=== PATIENT | male | born 1950 | race Two or more races ===

== ENCOUNTER 2019-05-03 18:02 | Inpatient (IN) | payer OTHER ==
[~2019-05-03] VITALS: Ht 167.6 cm; Wt 86.7 kg
[2019-05-03] MEDS ORDERED: SODIUM CHLORIDE 0.9% 1000ML 1,000 ML IV STA (18:21)
[2019-05-03] MEDS ORDERED: ONDANSETRON HCL INJ 2MG/ML 2ML 2 MG/ML VIAL IV STA (18:21)
[2019-05-03] MEDS ORDERED: PANTOPRAZOLE 40 MG 10ML VIAL IV STA (18:21)
[2019-05-03 18:53] LABS: BASOPHILS % 0.4 % (0.0-1.0); EOSINOPHILS # (AUTO) 0.2 (0.0-0.4); EOSINOPHILS % 1.8 % (0.0-6.0); HEMATOCRIT 48.7 % (38.2-49.6); HEMOGLOBIN 16.8 g/dL (14.0-18.0); LYMPHOCYTES # (AUTO) 2.1 (1.0-3.2); LYMPHOCYTES % 20.2 % (18.0-39.1); MEAN CORPUSCULAR HEMOGLOBIN 29.7 pg (28-32); MEAN CORPUSCULAR HGB CONC 34.5 g/dL (31-35); MEAN CORPUSCULAR VOLUME 86.2 fL (81-99); MONOCYTES # (AUTO) 0.8 (0.2-0.8); MONOCYTES % 7.3 % (4.4-11.3); NEUTROPHILS # (AUTO) 7.4 (2.1-6.9); NEUTROPHILS % 69.6 % (38.7-80.0); PLATELET COUNT 249 x10e3/uL (140-360); RED BLOOD COUNT 5.65 x10e6/uL (4.3-5.7); RED CELL DISTRIBUTION WIDTH 13.3 % (11.7-14.4)
[2019-05-03 19:05] LABS: INR 0.88; PROTHROMBIN TIME 12.4 seconds (11.9-14.5)
[2019-05-03 19:15] LABS: ALANINE AMINOTRANSFERASE 41 IU/L (0-55); ALBUMIN 4.7 g/dL (3.5-5.0); ALBUMIN/GLOBULIN RATIO 1.4 (0.8-2.0); ALKALINE PHOSPHATASE 99 IU/L (40-150); AMYLASE 223 U/L (25-125); ANION GAP 17.3 mmol/L (8-16); BLOOD UREA NITROGEN 17 mg/dL (7-26); BUN/CREATININE RATIO 15 (6-25); CALCIUM 11.3 mg/dL (8.4-10.2); CARBON DIOXIDE 31 mmol/L (22-29); CHLORIDE 97 mmol/L (98-107); CREATINE KINASE 157 IU/L (30-200); CREATININE, SERUM 1.17 mg/dL (0.72-1.25); EST GLOMERULAR FILTRATION RATE > 60 ML/MIN (60-); GLUCOSE 204 mg/dL (74-118); LIPASE 41 U/L (8-78); MAGNESIUM 2.6 MG/DL (1.3-2.1); POTASSIUM 4.3 mmol/L (3.5-5.1); SODIUM 141 mmol/L (136-145)
--- NOTE | 2019-05-03 19:17 | Diagnostic Imaging Report ---
A single frontal view of the chest. HISTORY: Abdominal pain, nausea, vomiting COMPARISON: None available. DISCUSSION: Portable technique, limits sensitivity of the exam. Soft tissue attenuation partially limits sensitivity of the exam. Tubes/Lines: None Lungs and pleura: Elevation versus eventration of the right hemidiaphragm. Minimal right basilar atelectasis. No evidence of a consolidative pneumonia or pulmonary alveolar edema. No definite pleural effusion or pneumothorax is identified. Heart and mediastinum: The cardiomediastinal silhouette appear(s) unremarkable. Bones and soft tissues: Appear unremarkable, given this limited exam. IMPRESSION: 1. Mild elevation versus eventration of the right hemidiaphragm with adjacent minimal atelectasis. 2. Otherwise, no acute radiographic abnormality. Signed by: Dr. Aquiles Lozoya D.O., M.M.M. on 05/03/2019 7:14 PM
[2019-05-03] MEDS ORDERED: IOPAMIDOL 370 MG/ML 200 ML INFUS..BTL INJ ONE (19:30)
[2019-05-03] MEDS ORDERED: SODIUM CHLORIDE 0.9% 50ML 50 ML ONE (19:30)
[2019-05-03 20:23] LABS: BILIRUBIN,URINE NEGATIVE (NEGATIVE); CLARITY,URINE CLEAR (CLEAR); COLOR,URINE YELLOW (YELLOW); KETONES,URINE NEGATIVE (NEGATIVE); LEUKOCYTE ESTERASE ,URINE NEGATIVE (NEGATIVE); NITRITE,URINE NEGATIVE (NEGATIVE); PROTEIN,URINE DIPSTICK 1+ (NEGATIVE); URINE UROBILINOGEN 0.2 mg/dL (0.2 - 1)
[2019-05-03 20:37] LABS: BACTERIA,URINE FEW /HPF
[2019-05-03 20:38] LABS: EPITHELIAL CELLS,URINE RARE /LPF; MUCUS,URINE MANY (RARE)
--- NOTE | 2019-05-03 20:47 | Diagnostic Imaging Report ---
EXAM: CT of the abdomen and pelvis WITH contrast HISTORY: Abdominal pain, nausea, vomiting, diarrhea, status post appendectomy COMPARISON: None available. TECHNIQUE: The abdomen and pelvis were scanned utilizing a multidetector helical scanner. Coronal and sagittal reformats are provided. PROTOCOL: Routine IV CONTRAST: 100 cc of Isovue-370. ORAL CONTRAST: None, which limits sensitivity and specificity of the exam. RADIATION DOSE: Total DLP: 664.82 mGy*cm Estimated effective dose: (DLP x 0.015 x size factor) Dose modulation, iterative reconstruction, and/or weight based adjustment of the mA/kV was utilized to reduce the radiation dose to as low as reasonably achievable. COMPLICATIONS: None FINDINGS: LOWER THORAX: Minimal right lower lobe dependent atelectasis. HEPATOBILIARY: Diffusely decreased attenuation. A 1.5 cm fluid density within the left lobe, compatible with a small cyst. No biliary dilation. No calcified gallstone. SPLEEN: No splenomegaly. PANCREAS: No focal masses or ductal dilatation. ADRENALS: A 4 mm macroscopic fat density within the left adrenal gland, compatible with an adrenal myelolipoma. KIDNEYS/URETERS: No hydronephrosis, stones, or definite solid mass lesions. PELVIC ORGANS/BLADDER: Enlarged prostate, 6.1 cm (ML). GI TRACT: Multiple distended to mildly dilated loops of predominantly fluid-filled small bowel within the left upper quadrant and mid abdomen, measuring up to 3.5 cm in diameter. More distally small bowel feces sign with a transition zone within the anterior aspect of the right lower quadrant of the abdomen with more distal decompressed small bowel. Air and fecal material throughout the colon. PERITONEUM / RETROPERITONEUM: No free air or fluid. LYMPH NODES: No pathologically enlarged lymph node. VESSELS: Scattered atherosclerotic vascular calcifications, including the coronary arteries. BONES and JOINTS: No aggressive osseous lesion or acute fracture. Multilevel degenerative changes of the axial skeleton, a degenerative 9 mm anterolisthesis of L4 on L5. SOFT TISSUES: Ventral superficial soft tissue edema. IMPRESSION: 1. Findings most compatible with a partial small bowel obstruction (mid to distal small bowel) at the anterior aspect of the right lower quadrant of the abdomen. 2. Incidental 4 mm left adrenal myelolipoma. 3. Coronary atherosclerosis. Signed by: Dr. Aquiles Lozoya D.O., M.M.M. on 05/03/2019 8:43 PM
[2019-05-03] MEDS ORDERED: BENZOCAINE/TETRACAINE/BUTAMBEN AERO SPRAY 56 GM CAN TOP ONE (21:00)
[2019-05-03] MEDS ORDERED: LIDOCAINE VISC 2% SOLN 15 ML UDC ONE (21:29)
[2019-05-03] MEDS ORDERED: ONDANSETRON HCL INJ 2MG/ML 2ML 2 MG/ML VIAL IV PRN (21:30)
[2019-05-03] MEDS ORDERED: DEXTROSE 50% SYRINGE 50 ML IV PRN (21:30)
--- OUTSIDE RECORDS SUMMARY | 2019-05-03 21:30 | XMS REPORT ---
Author Author [facility] Address Unknown Phone Unavailable Care Team Providers Care Lead Trainer Name Role Phone Mp PAGAN Unavailable Unavailable Problems This patient has no known problems. Allergies, Adverse Reactions, Alerts This patient has no known allergies or adverse reactions. Medications This patient has no known medications. Results Test Description Test Time Test Comments Text Results Atomic Results Result Comments CT ABDOMEN/PELVIS W 2019-05-03 20:22:00 [place] [address] Patient Name: NIKI RAMIREZ JR MR #: [id number] : 1950 Age/Sex: 68/M Req #: [id number] Adm Physician: Ordered by: FRANCISCO JAVIER PAGAN MD Report #: [id number] Location: ER Room/Bed: Procedure: CT/CT ABDOMEN/PELVIS W Exam Date: 05/03/19 Exam Time: 1947 REPORT STATUS: Signed EXAM: CT of the abdomen and pelvis WITH contrast HISTORY: Abdominal pain, nausea, vomiting, diarrhea, status post appendectomy COMPARISON: None available. TECHNIQUE: The abdomen and pelvis were scanned utilizing a multidetector helical scanner. Coronal and sagittal reformats are provided. PROTOCOL: Routine IV CONTRAST: 100 cc of Isovue-370. ORAL CONTRAST: None, which limits sensitivity and specificity of the exam. RADIATION DOSE: Total DLP: 664.82 mGy*cm Estimated effective dose: (DLP x 0.015 x size factor) Dose modulation, iterative reconstruction, and/or weight based adjustment of the mA/kV was utilized to reduce the radiation dose to as low as reasonably achievable. COMPLICATIONS: None FINDINGS: LOWER THORAX: Minimal right lower lobe dependent atelectasis. HEPATOBILIARY: Diffusely decreased attenuation. A 1.5 cm fluid density within the left lobe, compatible with a small cyst. No biliary dilation. No calcified gallstone. SPLEEN: No splenomegaly. PANCREAS: No focal masses or ductal dilatation. ADRENALS: A 4 mm macroscopic fat density within the left adrenal gland, compatible with an adrenal myelolipoma. KIDNEYS/URETERS: No hydronephrosis, stones, or definite solid mass lesions. PELVIC ORGANS/BLADDER: Enlarged prostate, 6.1 cm (ML). GI TRACT: Multiple distended to mildly dilated loops of predominantly fluid-filled small bowel within the left upper quadrant and mid abdomen, measuring up to 3.5 cm in diameter. More distally small bowel feces sign with a transition zone within the anterior aspect of the right lower quadrant of the abdomen with more distal decompressed small bowel. Air and fecal material throughout the colon. PERITONEUM / RETROPERITONEUM: No free air or fluid. LYMPH NODES: No pathologically enlarged lymph node. VESSELS: Scattered atherosclerotic vascular calcifications, including the coronary arteries. BONES and JOINTS: No aggressive osseous lesion or acute fracture. Multilevel degenerative changes of the axial skeleton, a degenerative 9 mm anterolisthesis of L4 on L5. SOFT TISSUES: Ventral superficial soft tissue edema. IMPRESSION: 1. Findings most compatible with a partial small bowel obstruction (mid to distal small bowel) at the anterior aspect of the right lower quadrant of the abdomen. 2. Incidental 4 mm left adrenal myelolipoma. 3. Coronary atherosclerosis. Signed by: Ann Marie SteeleO., M.M.M. on 05/03/2019 8:43 PM Dictated By: RHONA LOZOYA DO 42 Transcribed By: HARLEY on 05/03/192042 COPY TO: FRANCISCO JAVIER PAGAN MD CHEST SINGLE (PORTABLE) 2019-05-03 19:12:00 [place] [address] Patient Name: NIKI RAMIREZ JR MR #: [id number] : 1950 Age/Sex: 68/M Req #: [id number] [facility] Physician: Ordered by: FRANCISCO JAVIER PAGAN MD Report #: [id number] Location: ER Room/Bed: Procedure: [id number] DX/CHEST SINGLE (PORTABLE) Exam Date: 05/03/19 Exam Time: 1836 REPORT STATUS: Signed A single frontal view of the chest. HISTORY: Abdominal pain, nausea, vomiting COMPARISON: None available. DISCUSSION: Portable technique, limits sensitivity of the exam. Soft tissue attenuation partially limits sensitivity of the exam. Tubes/Lines: None Lungs and pleura: Elevation versus eventration of the right hemidiaphragm. Minimal right basilar atelectasis. No evidence of a consolidative pneumonia or pulmonary alveolar edema. No definite pleural effusion or pneumothorax is identified. Heart and mediastinum: The cardiomediastinal silhouette appear(s) unremarkable. Bones and soft tissues: Appear unremarkable, given this limited exam. IMPRESSION: 1. Mild elevation versus eventration of the right hemidiaphragm with adjacent minimal atelectasis. 2. Otherwise, no acute radiographic abnormality. Signed by: Dr. Rhona Lozoya D.O., M.M.M. on 05/03/2019 7:14 PM Dictated By: RHONA LOZOYA DO 13 Transcribed By: HARLEY on 05/03/191913 COPY TO: FRANCISCO JAIVER PAGAN MD
--- NOTE | 2019-05-03 22:45 | NUR ---
RECEIVED REPORT FROM HARRY MARTINEZ IN THE ER FOR PT TRANSFERRING TO ROOM 198.
--- NOTE | 2019-05-03 22:55 | NUR ---
RECEIVED PT BY STRETCHER TO ROOM 198, PT AAOX3, RR EVEN AND NON-LABORED, NGT CONNECTED TO LCS. NO S/SX OF DISTRESS NOTED. PT REPORTS PAIN TO ANTERIOR ABD. ABD NOTED TO BE DISTENDED. PT ASSISTED TO AMBULATE TO HOSPITAL BED, AND LAY IN FOWLERS POSITION. ORIENTED PT AND FAMILY TO HOSPITAL ROOM, CALL LIGHT, PHONE, BED CONTROL AND LIGHTS. LEFT PT LAYING FOWLERS IN BED, BED IN LOW LOCKED POSITION, SIDE RAILS UPX2, CALL LIGHT AND PHONE WITHIN REACH.
[2019-05-03 23:00] VITALS: BP 158/84
[2019-05-03] MEDS: SODIUM CHLORIDE 0.9% 250ML IRRIG IR SCH (23:05)
[2019-05-03] MEDS ORDERED: BENZOCAINE/TETRACAINE/BUTAMBEN AERO SPRAY 56 GM CAN ONE (23:10)
[2019-05-03] MEDS: SODIUM CHLORIDE 0.9% 1000ML 1,000 ML IV SCH (23:20)
[2019-05-03 23:30] VITALS: BP 158/84
[2019-05-03] MEDS: MORPHINE SULFATE INJ 4 MG/ML INJ 1ML IV PRN (23:46)
[2019-05-03] MEDS: INSULIN LISPRO 100 UNIT/1 ML 3ML VIAL SQ SCH (23:52)
[2019-05-04] VITALS (8 sets, daily range): BP systolic 133–158; BP diastolic 76–84
[2019-05-04] MEDS ORDERED: ASPIR 8181 MG PO
[2019-05-04] MEDS ORDERED: METFORMIN HCL500 MG PO
[2019-05-04] MEDS ORDERED: NOVOLOG100 UNITS1 SC
[2019-05-04] MEDS ORDERED: LANTUS 3ML100 UNITS/ SC
[2019-05-04] MEDS ORDERED: SERTRALINE HCL100 MG PO
[2019-05-04] MEDS ORDERED: LISINOPRIL10 MG PO
[2019-05-04] MEDS ORDERED: LIPITOR20 MG PO
[2019-05-04 00:42] LABS: CREATINE KINASE 95 IU/L (30-200)
[2019-05-04] MEDS: SODIUM CHLORIDE 0.9% 250ML IRRIG IR SCH ×6 (02:17→21:57)
[2019-05-04] MEDS: SODIUM CHLORIDE 0.9% 1000ML 1,000 ML IV SCH ×3 (05:19→16:02)
[2019-05-04 05:31] LABS: BASOPHILS % 0.3 % (0.0-1.0); EOSINOPHILS # (AUTO) 0.1 (0.0-0.4); EOSINOPHILS % 1.5 % (0.0-6.0); HEMATOCRIT 41.6 % (38.2-49.6); HEMOGLOBIN 13.9 g/dL (14.0-18.0); LYMPHOCYTES # (AUTO) 1.4 (1.0-3.2); LYMPHOCYTES % 22.9 % (18.0-39.1); MEAN CORPUSCULAR HEMOGLOBIN 29.4 pg (28-32); MEAN CORPUSCULAR HGB CONC 33.4 g/dL (31-35); MEAN CORPUSCULAR VOLUME 87.9 fL (81-99); MONOCYTES # (AUTO) 0.7 (0.2-0.8); MONOCYTES % 10.9 % (4.4-11.3); NEUTROPHILS % 64.1 % (38.7-80.0); PLATELET COUNT 208 x10e3/uL (140-360); RED BLOOD COUNT 4.73 x10e6/uL (4.3-5.7); RED CELL DISTRIBUTION WIDTH 13.2 % (11.7-14.4)
[2019-05-04 05:57] LABS: ALANINE AMINOTRANSFERASE 31 IU/L (0-55); ALBUMIN 3.5 g/dL (3.5-5.0); ALBUMIN/GLOBULIN RATIO 1.3 (0.8-2.0); ALKALINE PHOSPHATASE 64 IU/L (40-150); AMYLASE 90 U/L (25-125); ANION GAP 11.3 mmol/L (8-16); BLOOD UREA NITROGEN 16 mg/dL (7-26); BUN/CREATININE RATIO 19 (6-25); CALCIUM 9.2 mg/dL (8.4-10.2); CARBON DIOXIDE 27 mmol/L (22-29); CHLORIDE 99 mmol/L (98-107); CREATINE KINASE 92 IU/L (30-200); CREATININE, SERUM 0.86 mg/dL (0.72-1.25); EST GLOMERULAR FILTRATION RATE > 60 ML/MIN (60-); GLUCOSE 183 mg/dL (74-118); LIPASE 65 U/L (8-78); POTASSIUM 4.3 mmol/L (3.5-5.1); SODIUM 133 mmol/L (136-145)
[2019-05-04] MEDS: INSULIN LISPRO 100 UNIT/1 ML 3ML VIAL SQ SCH ×4 (06:00→23:56)
[2019-05-04] MEDS ORDERED: ACETAMINOPHEN 1000 MG/100 ML IV PRN (09:30)
[2019-05-04] MEDS ORDERED: ONDANSETRON HCL INJ 2MG/ML 2ML 2 MG/ML VIAL IV PRN (09:30)
--- NOTE | 2019-05-04 09:35 | NUR ---
pt resting in bed, family at bedside. vs stable. no s/s distress or c/o pain. vs stable. ng tube patent and to low suction
--- NOTE | 2019-05-04 11:37 | Consultation ---
DATE OF CONSULTATION: 05/04/2019 CHIEF COMPLAINT: Abdominal pain, vomiting. HISTORY OF PRESENT ILLNESS: This patient is a 68-year-old male with 1-day history of pain in the periumbilical area, cramping in nature with repeated vomiting. He denied fever, chills, or diarrhea. He has passed no flatus. PAST MEDICAL HISTORY: Positive for diabetes, hyperlipidemia. PAST SURGICAL HISTORY: Positive for abdominal incisional hernia repair. ALLERGIES: HE HAS NO DRUG ALLERGIES. SOCIAL HABITS: He denies smoking or alcohol abuse. REVIEW OF SYSTEMS: No chest pain, shortness of breath, or cough. PHYSICAL EXAMINATION: VITAL SIGNS: The patient's vital signs stable, afebrile. GENERAL: He is awake, alert, in moderate discomfort. HEENT: Sclerae nonicteric. NECK: Supple. LUNGS: Clear. HEART: Regular rate and rhythm. ABDOMEN: Moderately distended with no focal tenderness. EXTREMITIES: Without cyanosis or edema. LABORATORY DATA: White cell count is 6.1, hemoglobin of 14, and creatinine of 0.8, and glucose 183. CT of the abdomen show dilated loops of small bowel consistent with partial bowel obstruction. ASSESSMENT: Intestinal obstruction secondary to adhesions. Planned nasogastric tube decompression. Serial abdominal x-ray. We will follow the patient with you. Wesly Dumont MD DNL/MODL /[id number]
--- NOTE | 2019-05-04 13:04 | NUR ---
received pt via wheelchair from [facility] accompanied by . patient safely transferred into bed. oriented to room and use of call light. call light placed within reach. NGT to right nare and connected to LWS. clear red drainage noted. pain 5/10 to abdomen. AAOX4. bed in low and locked position. patient instructed to call for assistance using call light.
[2019-05-04] MEDS: MORPHINE SULFATE INJ 4 MG/ML INJ 1ML IV PRN (13:11)
--- NOTE | 2019-05-04 13:40 | NUR ---
clarified KUB order with and wants KUB in am 05/05/19.
[2019-05-04] MEDS ORDERED: MORPHINE SULFATE 2 MG/ML SYR 1ML IV PRN (13:45)
--- NOTE | 2019-05-04 13:57 | NUR ---
EDUCATED ABOUT IMM, SIGNED, FILED IN CHART, WITH COPY LEFT WITH FAMILY AT BEDSIDE.
[2019-05-04 14:18] LABS: CREATINE KINASE 90 IU/L (30-200)
--- NOTE | 2019-05-04 15:28 | History and Physical ---
PRIMARY CARE PHYSICIAN: Dr. Wesly Golden. CAST IRON DIPPER: Dr. Wesly Dumont. CHIEF COMPLAINT: Abdominal distention, abdominal pain, small-bowel obstruction. HISTORY OF PRESENT ILLNESS: The patient is a 68-year-old male came in with abdominal distention started approximately within 24 hours. The patient had a CT scan done in the emergency room, found to have partial small bowel obstruction. NG tube in place with output. The patient had multiple abdominal surgery in the remote past. He had appendectomy and he had a ventral hernia repair. The patient is otherwise stable at this time on NG tube. Pain is improving. PAST MEDICAL HISTORY: Diabetes type 2, on insulin therapy, dyslipidemia, hypertension, anxiety. PAST SURGICAL HISTORY: Appendectomy, knee surgery, ventral abdominal hernia repair. SOCIAL HISTORY: The patient lives with his spouse. He does not smoke or use alcohol. No regular drugs. ALLERGIES: NO KNOWN ALLERGIES. HOME MEDICATIONS: Aspirin, Lipitor, insulin aspart, insulin Lantus, lisinopril, metformin, and Zoloft. PHYSICAL EXAMINATION: VITAL SIGNS: Temperature 97, blood pressure 139/80, pulse rate 92, respirations 18. GENERAL: The patient is not in acute distress. He is awake. HEENT: Normocephalic, atraumatic. Pupils reactive. NG tube in place. PULMONARY: Diminished breath sounds without any wheezing. CARDIOVASCULAR: S1, S2. Regular rate and rhythm. ABDOMEN: Diminished bowel sounds, distention, midline scar. NG tube in place. EXTREMITIES: No cyanosis or edema NEUROLOGIC: No focal deficit. LABORATORY DATA: WBC 6.2, hemoglobin 13.9, hematocrit 42, platelets 208. Sodium 141, potassium 4.3, chloride 97, bicarb 31, BUN 17, creatinine 1.1, glucose is 204, magnesium 206. Liver enzymes normal. Cardiac enzymes normal. IMAGING: Partial small-bowel obstruction. IMPRESSION: 1. Partial small-bowel obstruction associated with abdominal pain, nausea, and abdominal distention. 2. Multiple chronic baseline problems. PLAN: Dr. Wesly Dumont has seen the patient. Repeat KUB in the morning. Home medication with some adjustment. Insulin sliding scale. IV fluids. Increase activity as tolerated. MD YVONNE Pennington/MODL /[id number]
--- NOTE | 2019-05-04 19:20 | NUR ---
Patient received lying in bed. at bedside. AAO x 3. Patient had no complaints of pain. Respirations even and non-labored. NG tube in right nares connected to low continuous suction. Patient instructed to call for assistance when needed. Call light within reach.
[2019-05-05] VITALS (8 sets, daily range): BP systolic 121–139; BP diastolic 64–78
[2019-05-05] MEDS: SODIUM CHLORIDE 0.9% 250ML IRRIG IR SCH ×4 (01:00→12:15)
[2019-05-05] MEDS: SODIUM CHLORIDE 0.9% 1000ML 1,000 ML IV SCH ×2 (04:52→18:00)
[2019-05-05 05:03] LABS: BASOPHILS % 0.3 % (0.0-1.0); EOSINOPHILS # (AUTO) 0.1 (0.0-0.4); HEMATOCRIT 40.7 % (38.2-49.6); HEMOGLOBIN 13.7 g/dL (14.0-18.0); LYMPHOCYTES # (AUTO) 1.3 (1.0-3.2); LYMPHOCYTES % 19.1 % (18.0-39.1); MEAN CORPUSCULAR HEMOGLOBIN 29.5 pg (28-32); MEAN CORPUSCULAR HGB CONC 33.7 g/dL (31-35); MEAN CORPUSCULAR VOLUME 87.7 fL (81-99); MONOCYTES # (AUTO) 0.6 (0.2-0.8); MONOCYTES % 8.8 % (4.4-11.3); NEUTROPHILS # (AUTO) 4.6 (2.1-6.9); NEUTROPHILS % 69.6 % (38.7-80.0); PLATELET COUNT 165 x10e3/uL (140-360); RED BLOOD COUNT 4.64 x10e6/uL (4.3-5.7); RED CELL DISTRIBUTION WIDTH 13.1 % (11.7-14.4)
[2019-05-05 05:15] LABS: ANION GAP 9.1 mmol/L (8-16); BLOOD UREA NITROGEN 13 mg/dL (7-26); BUN/CREATININE RATIO 18 (6-25); CALCIUM 8.6 mg/dL (8.4-10.2); CARBON DIOXIDE 29 mmol/L (22-29); CHLORIDE 99 mmol/L (98-107); CREATININE, SERUM 0.73 mg/dL (0.72-1.25); EST GLOMERULAR FILTRATION RATE > 60 ML/MIN (60-); GLUCOSE 170 mg/dL (74-118); POTASSIUM 4.1 mmol/L (3.5-5.1); SODIUM 133 mmol/L (136-145)
[2019-05-05 05:59] LABS: MAGNESIUM 1.8 MG/DL (1.3-2.1)
[2019-05-05] MEDS: INSULIN LISPRO 100 UNIT/1 ML 3ML VIAL SQ SCH ×3 (06:00→18:00)
[2019-05-05 06:03] LABS: FOLATE 12.6 ng/mL (7.0-15.4)
--- NOTE | 2019-05-05 06:58 | Diagnostic Imaging Report ---
EXAM: Abdomen 1 View INDICATION: Small bowel obstruction COMPARISON: Abdominal CT 05/03/2019 FINDINGS: Enteric tube tip terminates in the upper mid abdomen. Slightly dilated gas-filled loops of small bowel in the left abdomen. No renal calculi. No abnormal soft tissue masses. There are degenerative changes in the lumbar spine and pelvis. IMPRESSION: Enteric tube tip projects in the expected location of the gastric lumen. Mildly dilated loops of small bowel in left abdomen consistent with low-grade partial small bowel obstruction. Signed by: Sina Thibodeaux DO on 05/05/2019 6:55 AM
--- NOTE | 2019-05-05 07:13 | NUR ---
Walking rounds done. Shift report given to oncoming nurse.
[2019-05-05] MEDS: PANTOPRAZOLE 40 MG 10ML VIAL IV SCH (09:11)
[2019-05-05] MEDS ORDERED: ENOXAPARIN SOD INJ 40 MG/0.4 ML SYR SC SCH (17:00)
[2019-05-06] VITALS: BP 108/55
[2019-05-06 04:00] VITALS: BP 108/54
[2019-05-06 05:32] LABS: ANION GAP 9.8 mmol/L (8-16); BLOOD UREA NITROGEN 8 mg/dL (7-26); BUN/CREATININE RATIO 11 (6-25); CALCIUM 8.2 mg/dL (8.4-10.2); CARBON DIOXIDE 28 mmol/L (22-29); CHLORIDE 104 mmol/L (98-107); CREATININE, SERUM 0.74 mg/dL (0.72-1.25); EST GLOMERULAR FILTRATION RATE > 60 ML/MIN (60-); GLUCOSE 148 mg/dL (74-118); POTASSIUM 3.8 mmol/L (3.5-5.1); SODIUM 138 mmol/L (136-145)
--- NOTE | 2019-05-06 05:48 | Diagnostic Imaging Report ---
EXAM: Abdomen 2 View INDICATION: Small bowel obstruction COMPARISON: Abdominal CT 05/03/2019; abdominal radiograph 05/05/2019 5:47 AM FINDINGS: Interval removal of enteric tube compared to 05/05/2019. No gas-filled loops of pathologically dilated bowel. No renal calculi. No abnormal soft tissue masses. There are degenerative changes in the lumbar spine and pelvis. The included lower chest is unremarkable. IMPRESSION: No gas-filled loops of pathologically dilated bowel to indicate a bowel obstruction. Signed by: Sina Thibodeaux DO on 05/06/2019 5:44 AM
--- NOTE | 2019-05-06 07:00 | NUR ---
BEDSIDE SHIFT REPORT RECEIVED FROM THE DRILLER HAND RN. PT FAMILY AT BEDSIDE. PT DENIES NEEDS AT THIS TIME.
[2019-05-06] MEDS: INSULIN LISPRO 100 UNIT/1 ML 3ML VIAL SQ SCH ×2 (07:13)
[2019-05-06 08:08] VITALS: BP 117/63
[2019-05-06] MEDS: PANTOPRAZOLE 40 MG 10ML VIAL IV SCH (08:42)
[2019-05-06 08:45] VITALS: BP 117/63
[2019-05-06] MEDS ORDERED: ONDANSETRON HCL 4 MG ORAL DISINTEGRATING TAB PO PRN (09:45)
--- NOTE | 2019-05-06 10:08 | NUR ---
JOEL TO D/C PT PER DR. DELEON
[2019-05-06] MEDS ORDERED: SENNA LAX8.6 MG (10:13)
--- NOTE | 2019-05-06 10:22 | NUR ---
PT DISCHARGED HOME SAFELY WITH FAMILY. IV REMOVED. TIP INTACT. NO BLEEDING NOTED. DRESSING APPLIED. PT DENIED FURTHER NEEDS.
--- NOTE | 2019-05-06 11:18 | NUR ---
EDUCATED ABOUT IMM SIGNED FILED IN CHART AND LEFT COPY WITH PT BEDSIDE WITH CARD FOR ANY FURTHER QUESTIONS
== END 2019-05-06 10:23 | disposition home or self-care (01) | DRG 390 ==
LOC: ER 18:02 → ERHOLD 21:27 → IMCU 23:05 → MED/SURG2 05-04 13:05
PROVIDERS: ADMIT Internal Medicine; ATTEND Internal Medicine
DX: K56.609 Unspecified intestinal obstruction, unspecified as to partial versus complete obstruction (principal); E11.9 Type 2 diabetes mellitus without complications; I10 Essential (primary) hypertension
CPT/HCPCS: 36415; 71045; 74018; 74177; 80048; 80053; 81001; 82150; 82550; 82553; 82607; 82746; 82948; 83036; 83690; 83735; 84100; 84484; 85025; 85610; 85730; 86850; 86900; 93005; 99284; J1650; J2270; J2405; J7030; Q9967

== ENCOUNTER → 2019-07-29 | Day surgery (SDC) | payer MEDICARE ==
[2019-07-27 10:09] LABS: BASOPHILS % 0.3 % (0.0-1.0); EOSINOPHILS # (AUTO) 0.2 (0.0-0.4); EOSINOPHILS % 2.5 % (0.0-6.0); HEMATOCRIT 44.1 % (38.2-49.6); HEMOGLOBIN 15.2 g/dL (14.0-18.0); LYMPHOCYTES # (AUTO) 2.1 (1.0-3.2); LYMPHOCYTES % 32.3 % (18.0-39.1); MEAN CORPUSCULAR HEMOGLOBIN 29.5 pg (28-32); MEAN CORPUSCULAR HGB CONC 34.5 g/dL (31-35); MEAN CORPUSCULAR VOLUME 85.5 fL (81-99); MONOCYTES # (AUTO) 0.6 (0.2-0.8); MONOCYTES % 9.5 % (4.4-11.3); NEUTROPHILS # (AUTO) 3.6 (2.1-6.9); NEUTROPHILS % 55.1 % (38.7-80.0); PLATELET COUNT 219 x10e3/uL (140-360); RED BLOOD COUNT 5.16 x10e6/uL (4.3-5.7); RED CELL DISTRIBUTION WIDTH 13.3 % (11.7-14.4)
--- NOTE | 2019-07-27 10:50 | Diagnostic Imaging Report ---
Chest, 1 view, 07/27/2019. History: Preop, shoulder surgery. Comparison: 05/03/2019. Findings: The cardiomediastinal silhouette and pulmonary vasculature are within normal limits for a portable exam. There is persistent mild elevation of the right hemidiaphragm. There is no focal consolidation or pleural effusion. There are no acute osseous or soft tissue abnormalities. Impression: No acute cardiopulmonary abnormality. Signed by: Tera Gomez on 07/27/2019 10:47 AM
[~2019-07-29] MED LIST: ACETAMINOPHEN 1000 MG/100 ML IV ONE; ASPIR 8181 MG PO; BUPIVACAINE HCL 0.5% INJ 30 ML VIAL INJ ONE; CEFAZOLIN SOD 1 GM/NS 50ML 100 ML IV ONE; DEXAMETHASONE SOD PHOS INJ 4 MG/ML VIAL ONE; EPINEPHRINE 1 MG/ML 30ML VIAL ONE; EPINEPHRINE HCL 1:1000 1ML 1 MG/ML AMP ONE; FENTANYL CITRATE/PF 100MCG/2 ML INJ ONE; HYDROXYZINE HCL25 MG PO; INSULIN LISPRO 100 UNIT/1 ML 3ML VIAL SQ ONE; INSULIN REGULAR, HUMAN 100 UNIT/1 ML 3ML VIAL ONE; LANTUS 3ML100 UNITS/ SC; LEVEMIR100 UNIT/1 INJ; LIDOCAINE HCL 2% LOCAL INJ 5 ML SDV VIAL INJ ONE; LIPITOR20 MG PO; LISINOPRIL10 MG PO; LORATADINE10 MG PO; METFORMIN HCL500 MG PO; MIDAZOLAM HCL 2 MG/2 ML VIAL ONE; MORPHINE SULFATE INJ 4 MG/ML INJ 1ML ONE; NOVOLOG100 UNITS1 SC; ONDANSETRON HCL INJ 2MG/ML 2ML 2 MG/ML VIAL ONE; PROPOFOL IV EMULSION 10 MG/ML 20 ML VIAL ONE; ROCURONIUM BROMIDE 10 MG/ML 5ML VIAL ONE; SENNA LAX8.6 MG; SERTRALINE HCL100 MG PO; SEVOFLURANE INHAL SOLN 250 ML PEN BTL ONE; SULINDAC200 MG PO; VICTOZA 2-0.6 MG/0.1 INJ; VITAMIN B-121000 MCG PO
[2019-07-29 12:15] VITALS: BP 154/86
--- NOTE | 2019-07-31 20:30 | Operative Report ---
DATE OF PROCEDURE: 07/29/2019 SURGEON: Georges Holloway MD PREOPERATIVE DIAGNOSES: Left shoulder rotator cuff tear, left shoulder acromioclavicular joint arthrosis. 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 OPERATIONS AND PROCEDURES PERFORMED: The patient underwent a left shoulder exam under anesthesia, left shoulder manipulation under anesthesia, left shoulder debridement of synovitis, left shoulder chondroplasty of the humeral head and glenoid, left shoulder arthroscopic repair of a massive rotator cuff tear, left shoulder arthroscopic subacromial decompression and acromioplasty and left shoulder arthroscopic distal clavicle resection. MISSION MANAGER: RAYO Brown. ANESTHESIA: General endotracheal intubation anesthesia as well as a regional block. IV FLUIDS: As per the anesthesia record. BRIEF DESCRIPTION OF THE PATIENT'S OPERATIVE PROCEDURE: Mr. Echols was taken to the operating room and placed in supine position on the operating room table. Following induction of general anesthesia, the patient's surgical table was converted to a beach chair type position. The patient's left shoulder was then examined under anesthesia. He was found to have a normal-appearing shoulder. Passive range of motion of shoulder joint demonstrated restrictions in forward flexion and abduction. The patient had approximately 145 degrees of forward flexion and abduction. At which point, the shoulder was extremely stiff. The shoulder was gently manipulated under anesthesia and fibrous bands were found to give way about the shoulder joint providing full passive range of motion of the shoulder itself. The shoulder was then prepped and draped in standard surgical fashion. Standard posterolateral and anterior port was created without difficulty. The scope was placed within the shoulder joint atraumatically. Examination of the glenohumeral articulation demonstrated chondromalacia of both surfaces. The long head of the biceps tendon was found to be ruptured and no longer contained within the shoulder joint. There was diffuse synovitis in the shoulder. There was a full-thickness rotator cuff tear with retraction. A shaver was placed in the shoulder joint and the synovitis was debrided. Chondroplasties of the humeral head and glenoid were also achieved at this time. The insertion site for the rotator cuff was debrided to a bleeding bony bed. The scope was then transferred to the subacromial space. A lateral portal was created with an outside in technique. Examination of the subacromial space found marked bursal tissue. A shaver was placed through the lateral portal and a bursectomy was performed. The rotator cuff tissue was found to be severely attenuated. There were also calcifications within the rotator cuff tissue. The insertion site for the rotator cuff was then further debrided. Two suture anchors were inserted into the greater tuberosity and the suture arms from those anchors were then woven through the rotator cuff tissue. The rotator cuff tissue was then advanced and tied firmly over the insertion site. This resulted in reapproximation of the patient's rotator cuff injury. The coracoacromial ligament was then resected and an arthroscopic acromioplasty was performed at this time. The anterior portal was then transferred into the subacromial space. The acromioclavicular joint was identified. The shaver was transferred to the anterior portal and a 1 cm section of the distal clavicle was resected at this time. The shoulder was placed through range of motion. There was no impingement on the underlying acromion. The shoulder was then deflated with sterile normal saline. Each of the portal sites were closed. Sterile dressings were applied and the patient was provided a shoulder immobilizer, awakened, and taken to the Postanesthesia Care Unit in stable condition. Katrin Mccall acted as first leveler for this case and was necessary for the prepping and draping of the patient as well as positioning of the arm and passage of suture to allow this case to be successful. MD ISAAC Bond/CAMRYN /[id number]
== END | disposition home or self-care (01) ==
LOC: OR 05:00
PROVIDERS: ATTEND Specialist
DX: S46.012A Strain of muscle(s) and tendon(s) of the rotator cuff of left shoulder, initial encounter (principal); S46.092A Other injury of muscle(s) and tendon(s) of the rotator cuff of left shoulder, initial encounter; S46.212A Strain of muscle, fascia and tendon of other parts of biceps, left arm, initial encounter; M19.012 Primary osteoarthritis, left shoulder; E11.9 Type 2 diabetes mellitus without complications; Z87.891 Personal history of nicotine dependence; Z83.3 Family history of diabetes mellitus; Z79.84 Long term (current) use of oral hypoglycemic drugs; Z01.810 Encounter for preprocedural cardiovascular examination; Z01.812 Encounter for preprocedural laboratory examination; Z01.811 Encounter for preprocedural respiratory examination; M94.212 Chondromalacia, left shoulder; M24.612 Ankylosis, left shoulder
CPT/HCPCS: 29824; 29826; 29827; 36415 ×2; 71046; 82948; 85025; 93005; J0131; J0171; J0690; J1100; J1817; J2001; J2250; J2270; J2405; J2704; J3010

== ENCOUNTER → 2020-03-16 | Day surgery (SDC) | payer MEDICARE, OTHER ==
[2020-03-11 17:01] LABS: BASOPHILS % 0.2 % (0.0-1.0); EOSINOPHILS # (AUTO) 0.1 (0.0-0.4); EOSINOPHILS % 2.2 % (0.0-6.0); HEMATOCRIT 40.8 % (38.2-49.6); HEMOGLOBIN 13.8 g/dL (14.0-18.0); LYMPHOCYTES # (AUTO) 1.9 (1.0-3.2); LYMPHOCYTES % 32.1 % (18.0-39.1); MEAN CORPUSCULAR HEMOGLOBIN 28.8 pg (28-32); MEAN CORPUSCULAR HGB CONC 33.8 g/dL (31-35); MONOCYTES # (AUTO) 0.5 (0.2-0.8); NEUTROPHILS # (AUTO) 3.4 (2.1-6.9); NEUTROPHILS % 57.2 % (38.7-80.0); PLATELET COUNT 206 x10e3/uL (140-360)
[2020-03-11 17:15] LABS: ANION GAP 10.4 mmol/L (8-16); BLOOD UREA NITROGEN 13 mg/dL (7-26); BUN/CREATININE RATIO 17 (6-25); CARBON DIOXIDE 28 mmol/L (22-29); CHLORIDE 105 mmol/L (98-107); CREATININE, SERUM 0.76 mg/dL (0.72-1.25); EST GLOMERULAR FILTRATION RATE > 60 ML/MIN (60-); GLUCOSE 216 mg/dL (74-118); POTASSIUM 4.4 mmol/L (3.5-5.1); SODIUM 139 mmol/L (136-145)
--- NOTE | 2020-03-11 19:57 | Diagnostic Imaging Report ---
EXAMINATION: CHEST 2 VIEWS INDICATION: ^[id number] ^1715 ^PRE-OP COMPARISON: Multiple prior chest x-ray examinations most recent dated 07/27/2019 FINDINGS: PA and lateral views TUBES and LINES: None. LUNGS/PLEURA: Lungs are well inflated. There are bilateral perihilar peribronchial thickening which could be due to lower airway disease.. There is no pleural effusion or pneumothorax. HEART AND MEDIASTINUM: The cardiomediastinal silhouette is unremarkable. BONES AND SOFT TISSUES: No acute osseous lesion. Soft tissues are unremarkable. UPPER ABDOMEN: No free air under the diaphragm. IMPRESSION: Bilateral perihilar peribronchial thickening likely due to lower airway disease Signed by: Eddy Minaya MD on 03/11/2020 7:53 PM
[~2020-03-16] MED LIST changes: -ACETAMINOPHEN 1000 MG/100 ML IV ONE; +BACLOFEN10 MG PO; -DEXAMETHASONE SOD PHOS INJ 4 MG/ML VIAL ONE; -EPINEPHRINE 1 MG/ML 30ML VIAL ONE; -EPINEPHRINE HCL 1:1000 1ML 1 MG/ML AMP ONE; -FENTANYL CITRATE/PF 100MCG/2 ML INJ ONE; -INSULIN LISPRO 100 UNIT/1 ML 3ML VIAL SQ ONE; -INSULIN REGULAR, HUMAN 100 UNIT/1 ML 3ML VIAL ONE; +KETOROLAC TROMETHAMINE 30 MG/ML VIAL ONE; -MIDAZOLAM HCL 2 MG/2 ML VIAL ONE; -MORPHINE SULFATE INJ 4 MG/ML INJ 1ML ONE; +PHENYLEPHRINE HCL 1% 10 MG/ML VIAL ONE; -ROCURONIUM BROMIDE 10 MG/ML 5ML VIAL ONE; +ULTRAM 50MG50 MG PO
[2020-03-16 09:55] VITALS: BP 130/80
--- NOTE | 2020-03-17 20:45 | Operative Report ---
DATE OF PROCEDURE: SURGEON: Georges Holloway MD PREOPERATIVE DIAGNOSES: Right knee medial meniscus tear. Right knee degenerative joint disease of the knee. POSTOPERATIVE DIAGNOSES: Right knee medial meniscus tear. Right knee degenerative joint disease of the knee. OPERATIONS/PROCEDURES PERFORMED: Patient underwent right knee examination under anesthesia, right knee arthroscopy, right knee partial medial meniscectomy, right knee chondroplasty of the patella on the medial femoral condyle, the medial tibial plateau, and lateral tibial plateau. [employer]: None. ANESTHESIA: General endotracheal intubation anesthesia. INTRAVENOUS FLUIDS: Per the anesthesia record. BRIEF DESCRIPTION OF THE PATIENT'S OPERATIVE PROCEDURE: Mr. Echols was taken to the operative room, placed in supine position on the operating table. Following induction of general anesthesia as well as the endotracheal intubation, the patient's right lower extremity was examined under anesthesia. He was found to have mild effusion of the knee joint, but otherwise ligamentously stable knee. The patient's lower extremity was prepped and draped in standard surgical fashion. A two-port technique was used to provide this patient arthroscopic evaluation of the knee joint. Examination of the suprapatellar pouch and medial and lateral gutters found no evidence of loose bodies. There was, however, evidence of chondromalacia of the patellar surfaces. The scope was advanced to the medial compartment. Examination of the medial compartment demonstrated a tear on the posterior horn and root of the medial meniscus. There was also chondromalacia of the medial femoral condyle and medial tibial plateau. A combination of biting forceps and a motorized shaver used to resect the torn portion of meniscus. Chondroplasties of the medial femoral condyle and medial tibial plateau are performed at this time. Scope was then advanced to the intercondylar notch, the anterior cruciate ligament was identified and found to be intact. Scope was then advanced to the lateral compartment and there was chondromalacia of the lateral tibial plateau. A chondroplasty of the surface was performed. Scope was then placed in the suprapatellar pouch and a chondroplasty of the patella was performed. The knee was deflated with sterile normal saline. The portal sites were closed using 4-0 nylon suture. The portal sites as well as the knee itself were then injected with 0.5% Marcaine with epinephrine. Sterile dressings were applied. The patient was then awakened and taken to postanesthesia care unit in stable condition. MD ISAAC Bond/CAMRYN /[id number]
== END | disposition home or self-care (01) ==
LOC: OR 05:39
PROVIDERS: ATTEND Specialist
DX: S83.221A Peripheral tear of medial meniscus, current injury, right knee, initial encounter (principal); M17.11 Unilateral primary osteoarthritis, right knee; M22.41 Chondromalacia patellae, right knee; I10 Essential (primary) hypertension; E11.9 Type 2 diabetes mellitus without complications; K21.9 Gastro-esophageal reflux disease without esophagitis; K58.9 Irritable bowel syndrome, unspecified; F41.9 Anxiety disorder, unspecified; F99 Mental disorder, not otherwise specified; X58.XXXA Exposure to other specified factors, initial encounter; Z01.810 Encounter for preprocedural cardiovascular examination; Z01.812 Encounter for preprocedural laboratory examination; Z01.818 Encounter for other preprocedural examination; Z11.59 Encounter for screening for other viral diseases; Z79.4 Long term (current) use of insulin; Z68.32 Body mass index [BMI] 32.0-32.9, adult; Z87.891 Personal history of nicotine dependence
CPT/HCPCS: 29881; 36415 ×2; 71046; 80048; 82948; 85025; 87635; 93005; J0690; J1885; J2001; J2370; J2405; J2704

== ENCOUNTER 2020-10-04 08:43 | Emergency (ER) | payer MEDICARE ==
[~2020-10-04] VITALS: Ht 167.6 cm; Wt 86.6 kg
[~2020-10-04 08:43] MED LIST changes: -BUPIVACAINE HCL 0.5% INJ 30 ML VIAL INJ ONE; -CEFAZOLIN SOD 1 GM/NS 50ML 100 ML IV ONE; -KETOROLAC TROMETHAMINE 30 MG/ML VIAL ONE; -LIDOCAINE HCL 2% LOCAL INJ 5 ML SDV VIAL INJ ONE; -ONDANSETRON HCL INJ 2MG/ML 2ML 2 MG/ML VIAL ONE; -PHENYLEPHRINE HCL 1% 10 MG/ML VIAL ONE; -PROPOFOL IV EMULSION 10 MG/ML 20 ML VIAL ONE; -SEVOFLURANE INHAL SOLN 250 ML PEN BTL ONE
== END 2020-10-04 09:45 | disposition home or self-care (01) ==
LOC: ER 09:40
DX: R50.9 Fever, unspecified (principal); R06.02 Shortness of breath; H54.40 Blindness, one eye, unspecified eye; E11.9 Type 2 diabetes mellitus without complications; Z79.4 Long term (current) use of insulin
CPT/HCPCS: 99282